=== PATIENT | female | born 1950 | race Caucasian/White ===

== ENCOUNTER → 2016-08-29 | Outpatient (CLI) | payer BC ==
--- NOTE | ~2016-08-29 | MY11 ---
[facility] A Service of [facility] RADIOLOGY TEXT RESULTS PATIENT: SISSY ANDERSON LOCATION: [facility] ACC #: [id number] : 54 UNIT #: [id number] AGE: [address]: Rocky Das MD SEX: F ORDER DR: [id number] [place] [id number] O MR#: [id number] Acc #: [id number] NAME: SISSY ANDERSON : 1950 SEX: F STUDY DATE/TIME: 08/29/2016 9:03 UNIT: [facility] ROOM: STUDY DESCRIPTION: MY Mammogram Screening Dig Marco A Attending Physician: Rocky Das M.D. Referring Physician: Rocky Das M.D. Ordering Physician: Rocky Das M.D. Primary Care Physician: Rocky Das M.D. MEDICAL IMAGING REPORT This report is preliminary unless electronic signature is present. EXAM Digital screening mammogram with CAD INDICATIONS Routine screening. PROCEDURE Bilateral CC and MLO views obtained on a digital mammography unit FDA-approved CAD device utilized. COMPARISON: 06/30/2015 FINDINGS Scattered fibroglandular density. No dominant mass or suspicious calcification. IMPRESSION Negative screening mammogram. Screen interval in 1 year is suggested. Patients over the age of 40 are entered into a reminder system with target due date for the next mammogram. A result letter will also be sent to the patient. BIRADS: 1- negative Dictated by... Gomez Hernandez M.D. THIS IS AN ELECTRONICALLY VERIFIED REPORT [facility] A Service of [facility] RADIOLOGY TEXT RESULTS PATIENT: SISSY ANDERSON LOCATION: [facility] : 54 UNIT #: [id number] AGE: [address]: Rocky Das MD SEX: F ORDER DR: Gomez Hernandez M.D. at 08/30/2016 7:08 AM TOROD/deysi TD: 08/29/2016 11:12 JOB #: [id number] MEDICAL IMAGING REPORT
== END | disposition home or self-care (01) ==
LOC: SMAM 08:25
DX: Z12.31 Encounter for screening mammogram for malignant neoplasm of breast (principal)
CPT/HCPCS: G0202